=== PATIENT | male | born 1945 | race Caucasian/White ===

== ENCOUNTER 2018-01-27 10:27 | Emergency (ER) | payer MEDICARE, OTHER ==
[~2018-01-27] VITALS: Ht 182.9 cm; Wt 115.9 kg
[~2018-01-27 10:27] MED LIST: AMRIX15 MG PO; ASPIRIN 81M81 MG/TA2 PO; ASPIRIN E.C. 8181 MG PO; CEFTIN 250250 MG/TAB PO; COREG 3.123.125 MG/T PO; COZAAR100 MG PO; CYMBALTA 30MG30 MG PO; CYMBALTA 60MG60 MG PO; EFFIENT10 MG PO; KEPPRA 500MG500 MG PO; KLOR-CON 88 MEQ PO; LIPITOR 40MG TA40 MG PO; LOPRESSOR 225 MG/TAB PO; LYRICA 50MG CAP50 MG PO; LYRICA 75MG CAP75 MG PO; MICARDIS HCT 251 TAB PO; MYSOLINE 5050 MG/TAB PO; NEXIUM 40MG40 MG PO; NITROQUICK0.4 MG SL; NORVASC 10MG10 MG PO; NORVASC 5MG5 MG/TAB PO; PLAVIX 75MG TAB75 MG PO; POTASSIUM75 MG PO; PROTONIX 40MG T40 MG PO; REQUIP 1MG T1 MG/TAB PO; RT ADVAIR HFA 1112 G IH; RT SPIRIVA18 MCG IH; TYLENOL EXTRA500 M1 PO; VENTOLIN0.09 MG IH; ZOCOR 40MG40 MG PO
[2018-01-27 10:34] VITALS: TEMP 97.8
[2018-01-27 10:53] LABS: BASO # 0.1 (0.0-0.2); BASO % 0.9 % (0.0-2.0); EOS # 0.3 (0.0-0.7); EOS % 3.1 % (0-4.0); GRAN # 6.2 (1.4-6.5); GRAN % 64.9 % (42.2-75.2); HEMATOCRIT 50.7 % (42.0-52.0); HEMOGLOBIN 17.5 g/dl (13.5-18.0); LYMPH # 2.3 (1.2-3.4); LYMPH % 23.8 % (20.0-51.0); MEAN CELL VOLUME 89 fl (80.0-100.0); MEAN CORPUSCULAR HEMOGLOBIN 31 pg (27.0-31.0); MEAN CORPUSCULAR HGB CONC 35 g/dl (33.0-37.0); MEAN PLATELET VOLUME 10.5 fl (7.4-10.4); MONO # 0.7 (0.1-0.6); PLATELET COUNT 174 K/mm3 (130-400); RED BLOOD COUNT 5.73 M/mm3 (4.20-5.60); REDCELL DISTRIBUTION WIDTH-CV 13.2 % (11.5-14.5)
[2018-01-27 11:00] LABS: PROTHROMBIN TIME 11.8 SECONDS (9.7-12.8)
[2018-01-27 11:25] LABS: ALBUMIN 4.5 gm/dL (3.5-5.0); BILIRUBIN,TOTAL 1.5 mg/dL (0.0-1.0); CALCIUM 9.3 mg/dL (8.4-10.2); CREATININE, serum 0.81 mg/dL (0.66-1.25); POTASSIUM 4.1 mmol/L (3.4-5.0); TOTAL PROTEIN 7.6 gm/dL (6.4-8.2)
[2018-01-27 13:02] VITALS: BP 137/71; PULSE 68
== END 2018-01-27 13:03 | disposition home or self-care (01) ==
LOC: COL.ER 10:27
PROVIDERS: Emergency Medicine
DX: R51 Headache (principal)
CPT/HCPCS: J1885; J7030

== ENCOUNTER → 2019-05-07 | Outpatient (CLI) | payer MEDICARE, OTHER ==
[~2019-05-07] VITALS: Ht 182.9 cm; Wt 112.6 kg
[~2019-05-07] MED LIST changes: +CBD OIL PO
[2019-05-07 12:12] VITALS: BP 161/81; PULSE 61
[2019-05-07 13:15] VITALS: BP 151/86; PULSE 73
--- NOTE | 2019-05-07 13:30 | NUR ---
pt denies pain or weakness in legs. Pt able to walk to wheelchair without difficulty. Pt out to car per wheelchair. Pt up and into car with standby assistance. Pt sent with copy of discharge instructions gone over previously.
== END ==
LOC: COL.RAD 05-04 13:00
DX: M48.061 Spinal stenosis, lumbar region without neurogenic claudication (principal)
CPT/HCPCS: J3301

== ENCOUNTER → 2019-06-11 | Outpatient (CLI) | payer MEDICARE, OTHER ==
[~2019-06-11] VITALS: Ht 182.9 cm; Wt 110.6 kg
[2019-06-11 09:52] VITALS: BP 155/83; PULSE 75
[2019-06-11 10:30] VITALS: BP 152/77; PULSE 59
--- NOTE | 2019-06-11 10:45 | NUR ---
Pt went to stand on legs and legs feel like jello, unable to bear weight, pt has no trouble moving legs. Pt given diet pepsi and muffin to eat. informed and heading back up to holding area.
[2019-06-11 11:07] VITALS: BP 137/77; PULSE 57
--- NOTE | 2019-06-11 11:36 | NUR ---
pt moving legs better, states still feels numb but not as bad. Pt not ready to try and stand at this time.
--- NOTE | 2019-06-11 12:04 | NUR ---
pt able to ambulate around in nurses holding area. Pt reports able to feel leg at this time. Pt into wheelchair and out to car. Pt up and into car with standby assistance. driving pt home.
== END ==
LOC: COL.RAD 09:30
DX: M51.04 Intervertebral disc disorders with myelopathy, thoracic region (principal)
CPT/HCPCS: J2704; J3301